=== PATIENT | female | born 1985 | race African-American/Black ===

== ENCOUNTER 2020-08-07 01:01 | Emergency (ER) | payer OTHER ==
[2020-08-07 01:30] VITALS: BP 128/74; PULSE 77; TEMP 98.3; BMI 34.4
[2020-08-07] MEDS ORDERED: IBUPROFEN 600 MG TABLET (FP) PO ONE ×2 (01:34→01:37)
[2020-08-07] MEDS ORDERED: ACETAMINOPHEN 325 MG TABLET (FP) PO ONE (01:34)
[2020-08-07] MEDS ORDERED: LIDOCAINE 5% TOPICAL PATCH TP ONE (01:35)
[2020-08-07] MEDS ORDERED: ACETAMINOPHEN 325 MG TABLET (FP) ONE (01:36)
[2020-08-07] MEDS ORDERED: LIDOCAINE 5% TOPICAL PATCH ONE (01:37)
[2020-08-07] MEDS ORDERED: LIDOCAINE PATCH REMOVAL MC SCH (22:00)
== END 2020-08-07 03:09 | disposition home or self-care (01) ==
LOC: JER 01:01 → MERGE 01:01 → JER 03:09
DX: S86.911A Strain of unspecified muscle(s) and tendon(s) at lower leg level, right leg, initial encounter (principal)
CPT/HCPCS: 73590-TC-RT-FY; 99283-25

== ENCOUNTER 2020-09-18 08:08 | Emergency (ER) | payer OTHER ==
[2020-09-18 08:19] VITALS: BP 120/73; PULSE 72; TEMP 98.6; BMI 33.6
[2020-09-18] MEDS ORDERED: ACETAMINOPHEN 1000 MG/100 ML VIAL (NON FORMULARY) IVPB ONE (09:13)
[2020-09-18] MEDS ORDERED: METOCLOPRAMIDE HCL INJECTION 10 MG/2 ML VIAL IVPB ONE (09:13)
[2020-09-18] MEDS ORDERED: SODIUM CHLORIDE 1,000 ML IV STA (10:04)
== END 2020-09-18 11:15 | disposition home or self-care (01) ==
LOC: JER 08:08
DX: R51.9 Headache, unspecified (principal)
CPT/HCPCS: 70450-TC; 99284-25

== ENCOUNTER 2020-09-20 14:21 | Emergency (ER) | payer OTHER ==
[2020-09-20] MEDS ORDERED: KETOROLAC TROMETHAMINE 30 MG/1 ML VIAL IVPUSH ONE (14:48)
[2020-09-20] MEDS ORDERED: METOCLOPRAMIDE HCL INJECTION 10 MG/2 ML VIAL IVPUSH ONE (14:48)
[2020-09-20] MEDS ORDERED: SODIUM CHLORIDE 0.9% 500 ML INFUS.BAG IV ONE (14:48)
[2020-09-20] MEDS ORDERED: LIDOCAINE 5% TOPICAL PATCH TP ONE (14:48)
[2020-09-20] MEDS ORDERED: ACETAMINOPHEN 1000 MG/100 ML VIAL (NON FORMULARY) IVPB ONE (14:48)
[2020-09-20 15:13] VITALS: TEMP 98.4; BMI 33.6
[2020-09-20] MEDS ORDERED: ACETAMINOPHEN INJECTION 100 ML IVPB ONE (15:16)
[2020-09-20] MEDS ORDERED: KETOROLAC TROMETHAMINE 15 MG/ML VIAL ONE (15:16)
[2020-09-20] MEDS ORDERED: LIDOCAINE 5% TOPICAL PATCH ONE (15:16)
[2020-09-20] MEDS ORDERED: METOCLOPRAMIDE HCL INJECTION 10 MG/2 ML VIAL ONE (15:16)
[2020-09-20 15:40] LABS: BASO % 1.3 % (0-2.0); EOS % 2.4 % (0-4.5); HEMATOCRIT 37.7 % (32.4-45.2); HEMOGLOBIN 12.6 GM/dL (10.7-15.3); LYMPH % 45.3 % (8-40); MCH 29.6 pg (25.7-33.7); MCHC 33.6 g/dl (32.0-36.0); MEAN CELL VOLUME 88.1 fl (80-96); MEAN PLT VOLUME 8.1 fl (7.5-11.1); MONO % 7.2 % (3.8-10.2); NEUT % 43.8 % (42.8-82.8); PLATELET COUNT 328 K/MM3 (134-434); RBC 4.28 M/mm3 (3.60-5.2); RDW 13.9 % (11.6-15.6)
[2020-09-20 15:49] LABS: POTASSIUM 4.2 mmol/L (3.5-5.1)
[2020-09-20 15:51] LABS: BLOOD UREA NITROGEN 9.9 mg/dL (7-18); CALCIUM 9.3 mg/dL (8.5-10.1)
[2020-09-20 15:55] LABS: CREATININE 0.7 mg/dL (0.55-1.3)
[2020-09-20] MEDS ORDERED: DEXAMETHASONE SOD PHOSPHATE 10 MG/1 ML VIAL IVPUSH ONE (16:23)
[2020-09-20] MEDS ORDERED: diazePAM 5 MG TABLET PO ONE (16:23)
[2020-09-20] MEDS ORDERED: DEXAMETHASONE SOD PHOSPHATE 10 MG/1 ML VIAL ONE (16:36)
[2020-09-20] MEDS ORDERED: diazePAM 5 MG TABLET ONE (16:37)
[2020-09-20 16:51] VITALS: BP 123/76; PULSE 73
[2020-09-20] MEDS ORDERED: LIDOCAINE PATCH REMOVAL MC SCH (22:00)
== END 2020-09-20 17:22 | disposition home or self-care (01) ==
LOC: JER 14:21
PROC: 3E0333Z Introduction of Anti-inflammatory into Peripheral Vein, Percutaneous Approach (ICD-10-PCS; principal; 2020-09-20)
PROC: 3E033GC Introduction of Other Therapeutic Substance into Peripheral Vein, Percutaneous Approach (ICD-10-PCS; 2020-09-20)
PROC: 3E0333Z Introduction of Anti-inflammatory into Peripheral Vein, Percutaneous Approach (ICD-10-PCS; 2020-09-20)
PROC: 3E033GC Introduction of Other Therapeutic Substance into Peripheral Vein, Percutaneous Approach (ICD-10-PCS; 2020-09-20)
DX: R51.9 Headache, unspecified (principal); M54.2 Cervicalgia
CPT/HCPCS: 36415; 80048; 84703; 85025; 99284-25; J0131; J1100

== ENCOUNTER 2020-09-27 16:48 | Emergency (ER) | payer OTHER ==
[2020-09-27 17:12] VITALS: TEMP 98.8; BMI 30.9
[2020-09-27] MEDS ORDERED: LIDOCAINE 5% TOPICAL PATCH TP ONE (17:56)
[2020-09-27] MEDS ORDERED: METOCLOPRAMIDE HCL INJECTION 10 MG/2 ML VIAL IVPB ONE (17:56)
[2020-09-27] MEDS ORDERED: ACETAMINOPHEN 1000 MG/100 ML VIAL (NON FORMULARY) IVPB ONE (17:56)
[2020-09-27] MEDS ORDERED: diazePAM CARPU-JECT 10 MG/2 ML DISP.SYRIN IVPUSH ONE (17:56)
[2020-09-27] MEDS ORDERED: diazePAM CARPU-JECT 10 MG/2 ML DISP.SYRIN ONE (18:47)
[2020-09-27] MEDS ORDERED: LIDOCAINE 5% TOPICAL PATCH ONE (18:48)
[2020-09-27] MEDS ORDERED: METOCLOPRAMIDE HCL INJECTION 10 MG/2 ML VIAL ONE (18:48)
[2020-09-27] MEDS ORDERED: ACETAMINOPHEN INJECTION 100 ML IVPB ONE (18:48)
[2020-09-27 21:53] VITALS: BP 120/85; PULSE 76
[2020-09-27] MEDS ORDERED: LIDOCAINE PATCH REMOVAL MC ONE (22:00)
== END 2020-09-27 21:52 | disposition home or self-care (01) ==
LOC: JER 16:48
PROC: 3E033NZ Introduction of Analgesics, Hypnotics, Sedatives into Peripheral Vein, Percutaneous Approach (ICD-10-PCS; principal; 2020-09-27)
PROC: 3E033GC Introduction of Other Therapeutic Substance into Peripheral Vein, Percutaneous Approach (ICD-10-PCS; 2020-09-27)
DX: M54.2 Cervicalgia (principal)
CPT/HCPCS: 72040-TC; 99285-25; J0131

== ENCOUNTER 2020-12-30 01:52 | Emergency (ER) | payer OTHER ==
[2020-12-30 02:14] VITALS: BP 107/70; PULSE 78; TEMP 98.2; BMI 33.6
[2020-12-30] MEDS ORDERED: LIDOCAINE 5% TOPICAL PATCH TP ONE (02:39)
[2020-12-30] MEDS ORDERED: IBUPROFEN 400 MG TABLET (FP) PO ONE ×2 (02:39→02:50)
[2020-12-30] MEDS ORDERED: ACETAMINOPHEN 325 MG TABLET (FP) PO ONE (02:39)
[2020-12-30] MEDS ORDERED: LIDOCAINE 5% TOPICAL PATCH ONE (02:50)
[2020-12-30] MEDS ORDERED: ACETAMINOPHEN 325 MG TABLET (FP) ONE (02:50)
[2020-12-30] MEDS ORDERED: LIDOCAINE PATCH REMOVAL MC SCH (22:00)
== END 2020-12-30 03:48 | disposition home or self-care (01) ==
LOC: JER 01:52
DX: M25.531 Pain in right wrist (principal)
CPT/HCPCS: 73110-TC-RT-FY; 73130-TC-RT-FY; 99284-25

== ENCOUNTER 2021-03-25 08:21 | Emergency (ER) | payer OTHER ==
[2021-03-25 08:36] VITALS: BP 133/88; PULSE 74; TEMP 97; BMI 35.6
== END 2021-03-25 09:40 | disposition home or self-care (01) ==
LOC: JER 08:21 → JERFT 08:21 → JER 09:40
DX: M25.511 Pain in right shoulder (principal)
CPT/HCPCS: 73030-TC-RT-FY; 99283-25